=== PATIENT | female | born 1960 | race Hispanic/Latino ===

== ENCOUNTER 2016-10-25 08:51 | Emergency (ER) | payer OTHER ==
[~2016-10-25] VITALS: Ht 149.9 cm; Wt 56.2 kg
[~2016-10-25 08:51] MED LIST: ATORVASTATIN CA10 MG PO; FENOFIBRIC ACI135 MG PO; METFORMIN500 MG PO; XANAX0.5 MG PO
[2016-10-25 09:25] LABS: ABSOLUTE BASOPHIL COUNT 0 /CUMM (0.0-0.2); ABSOLUTE EOSINOPHIL COUNT 0.1 /CUMM (0.0-0.7); ABSOLUTE GRANULOCYTE CT 2.6 /CUMM (1.4-6.5); ABSOLUTE LYMPH COUNT 1.8 /CUMM (1.2-3.4); ABSOLUTE MONOCYTE COUNT 0.4 /CUMM (0.10-0.60); BASOPHIL % 0.4 % (0.0-2.0); EOSINOPHIL % 1.2 % (0-5); GRANULOCYTE % 52.7 % (42.2-75.2); HEMATOCRIT 39.3 % (37-47); MEAN CORPUSCULAR HGB 29.6 PG (27.0-31.0); MEAN CORPUSCULAR HGB CONC 33.6 G/DL (33.0-37.0); MEAN CORPUSCULAR VOLUME 88.1 FL (81.0-99.0); MEAN PLATELET VOLUME 7.9 FL (7.4-10.4); PLATELET COUNT 340 /CUMM (130-400); RBC DISTRIBUTION WIDTH 14.1 % (11.5-14.5); RED BLOOD CELL CT 4.47 /CUMM (4.20-5.40); WHITE BLOOD CELL COUNT 4.9 /CUMM (4.8-10.8)
--- NOTE | 2016-10-25 09:56 | ED GI/GU/ABDOMINAL COMPLAINT ---
History of Present Illness General Chief Complaint: Abdominal Pain/Flank Pain Stated Complaint: ABD PAIN AND NAUSEA Source: patient, family, old records Exam Limitations: no limitations Vital Signs & Intake/Output Vital Signs & Intake/Output Vital Signs Date Time Temp Pulse Resp B/P B/P Pulse O2 O2 Flow FiO2 Mean Ox Delivery Rate 10/25 1117 73 18 137/80 96 Room Air 10/25 0907 97.4 66 20 148/82 98 Room Air Allergies Coded Allergies: NO KNOWN ALLERGIES (08/24/13) Reconcile Medications Alprazolam (Xanax) 0.5 MG TABLET 1 TAB PO Q12 PRN ANXIETY Atorvastatin Calcium (Lipitor) 10 MG TABLET 1 TAB PO DAILY CHOLESTEROL ( Reported) FENOFIBRIC ACID (CHOLINE) (Fenofibric Acid) 135 MG CAPSULE.DR 1 TAB PO DAILY TRIGLYCERIDES (Reported) Hyoscyamine (Levsin) 0.125 MG TABLET 1 TAB PO Q4 PRN abdominal spasms METFORMIN HCL (Metformin) 500 MG TABLET 1 TAB PO BID DIABETES (Reported) Ondansetron (Zofran Odt) 4 MG TAB.RAPDIS 1 TAB SL TID PRN nausea Triage Note: PRESENTS TO ED FOR EVALUATION OF RUQ PAIN X 2 WEEKS WITH NAUSEA AND DIARRHEA, NO VOMITING. DENIED FEVER. Triage Nurses Notes Reviewed? yes ? n Is pt currently ? No Onset: Gradual Duration: waxing and waning (2 weeks) Timing: no prior history Quality/Severity: cramping Severity Numbers: 8 Location: right upper quadrant Radiation: no radiation Activities at Onset: none Prior Abdominal Problems: none Past Sexual History: Unobtainable at this time No Modifying Factors: none HPI: Patient is a 56-year-old female presenting to the emergency Department chief complaint of right upper quadrant abdominal pain since yesterday. Patient also reports that she has had loose stool 2 weeks. Denies any recent travel. No sick contacts. She does report that she was put on ciprofloxacin 500 mg twice a day 10 days. Called her primary care physician who advised her to come to the emergency department, she came yesterday but the wait was too long. Patient reports nausea but no vomiting. No fevers or chills. Denies taking anything to help her symptoms and she reports that the loose stool has been improving over the past day or 2, more semifirm stool this morning. No blood in the stool. (JOSHNIXON CAMP) Past History Travel History Traveled to [place] past 21 day No Medical History Any Pertinent Medical History? see below for history Cardiovascular: hypertension Psychiatric: anxiety Endocrine: diabetes Surgical History Surgical History: non-contributory Psychosocial History Who do you live with Spouse What is your primary language Macedonian Tobacco Use: Never used Family History Hx Contributory? No (NIXON YEUNG) Review of Systems Review of Systems Constitutional: Reports: no symptoms. Comments Review of systems: See HPI, All other systems negative. Constitutional, no chills fever or weight loss HEENT: No visual changes no sore throat no congestion Cardiovascular: No chest pain ,palpitation Skin, no jaundice no rashes Respiratory: No dyspnea cough sputum or hemoptysis GI: no vomiting : No dysuria No hematuria Muscle skeletal: no back pain, no neck pain, Neurologic: No numbness no confusion Psych: No stress anxiety or depression,. Heme/endocrine: No bruising no bleeding no polyuria or polydipsia Immunology: No splenectomy or history of AIDS (NIXON YEUNG) Physical Exam Physical Exam General Appearance: well developed/nourished, no apparent distress, alert, awake , comfortable Gastrointestinal: normal bowel sounds, soft, tenderness Comments: Well-developed well-nourished person in no acute distress HEENT: Pupils equally round and reactive to light and accommodation. Nose is atraumatic. External auditory canal and Tympanic membranes clear. Pharynx normal. No swelling or edema. Neck: normal inspection Back: Nontender, no CVA tenderness. Full range of motion Cardiovascular: Regular rate and rhythms no murmurs rubs or gallops, normal JVP Respiratory: Chest nontender. No respiratory distress.breath sounds clear to auscultation bilaterally Abdomen: Soft, tender to palpation in epigastric and ruq area. nondistended, no appreciable organomegaly. Normal bowel sounds. No ascites. negative psoas and opterator sign. Extremity: No edema Neuro: Alert oriented x3 Skin: No appreciable rash on exposed skin, skin is warm and dry. Psych: Mood and affect is normal, memory and judgment is normal. Core Measures ACS in differential dx? No Severe Sepsis Present: No Septic Shock Present: No (NIXON YEUNG) Progress Differential Diagnosis: appendicitis, biliary colic, diverticulitis, gastritis, hepatitis, pancreatitis, UTI/pyelo Plan of Care: Orders Procedure Date/time Status Add-on Test (ER Only) 10/25 929 Active URINALYSIS 10/25 929 Complete LIPASE 10/26 911 Complete AMYLASE 10/26 911 Complete COMPREHENSIVE METABOLIC PANEL 10/25 906 Complete CBC WITHOUT DIFFERENTIAL 10/25 906 Complete Laboratory Tests 10/25/16 1004: Urinalysis LIGHT H, Urine Color YEL, Urine Clarity CLEAR, Urine pH 6.0, Ur Specific [place] >= 1.030, Urine Protein NEG, Urine Ketones NEG, Urine Nitrite NEG, Urine Bilirubin NEG, Urine Urobilinogen 0.2, Ur Leukocyte Esterase NEG, Ur Microscopic SEDIMENT EXAMINED, Urine RBC 1-3, Urine WBC 1-3 H, Ur Epithelial Cells MOD H, Urine Bacteria FEW H, Granular Casts 1-3 H, Urine Hemoglobin SMALL H, Urine Glucose NEG 10/25/16911: Anion Gap 13, Estimated GFR > 60, BUN/Creatinine Ratio 24.3, Glucose 116 H, Calcium 10.3 H, Total Bilirubin 0.6, AST 34, ALT 47, Alkaline Phosphatase 51, Total Protein 7.3, Albumin 4.8, Globulin 2.5, Albumin/Globulin Ratio 1.9, Amylase 91, Lipase 165, CBC w Diff NO MAN DIFF REQ, RBC 4.47, MCV 88.1, MCH 29.6 , RDW 14.1, MPV 7.9, Gran % 52.7, Lymphocytes % 37.1, Monocytes % 8.6, Eosinophils % 1.2, Basophils % 0.4, Absolute Granulocytes 2.6, Absolute Lymphocytes 1.8, Absolute Monocytes 0.4, Absolute Eosinophils 0.1, Absolute Basophils 0, PUBS MCHC 33.6 Diagnostic Imaging: Viewed by Me: Ultrasound. Discussed w/RAD: Ultrasound. Radiology Impression: PATIENT: ALIDA ROBLES PRESENT AGE: 56 PATIENT ACCOUNT NO: [id number] : 58 LOCATION: [facility] ORDERING PHYSICIAN: NIXON CADET SERVICE DATE: 10/25/16-100 EXAM TYPE: US - US-LIMITED ABDOMEN EXAMINATION: US ABDOMEN LIMITED CLINICAL INFORMATION: Right upper quadrant. COMPARISON: None TECHNIQUE: Real-time imaging of the right upper quadrant abdominal viscera. FINDINGS: PANCREAS: The pancreas is normal in appearance. The tail is obscured by gas. LIVER: Normal. The liver is mildly echogenic consistent with hepatic steatosis. No focal liver lesion is identified. There is no intrahepatic biliary ductal dilatation. GALLBLADDER: Gallbladder is not identified. It may have been removed or is otherwise contracted.. COMMON BILE DUCT: Normal in caliber measuring 0.5 cm in diameter. RIGHT KIDNEY: No hydronephrosis. There is a small cyst at the lower pole of the right kidney measuring 1 cm in diameter. No other focal renal mass is defined. There is no stone.. The kidney measures 10.2 cm in maximum dimension. FREE FLUID : None. IMPRESSION: Hepatic steatosis. Gallbladder is not identified and may have been removed or is contracted. No biliary ductal dilatation. Incidental small cyst lower pole right kidney. DICTATED BY: CONNOR SANDERS MD DATE/TIME DICTATED:10/25/161102 INDUSTRIAL SECURITY ANALYST:SHAVON DATE/TIME TRANSCRIBED:1102 CONFIDENTIAL, DO NOT COPY WITHOUT APPROPRIATE AUTHORIZATION. < Electronically signed in Other Vendor System> SIGNED BY: CONNOR SANDERS MD 10/25/161108 Initial ED EKG: none Comments: etiology of diarrhea unknown. could be viral. Patient is afebrile, no elevation in white blood cell count. Ultrasound is essentially negative, no gallbladder identified and no dilation of common bile duct. There is some hepatic steatosis noted. No elevation in LFTs or bilirubin. Patient will be treated symptomatically with Levsin and Zofran. She was given outpatient prescription for stool culture and C. difficile culture. She'll follow up with GI if symptoms persist. Patient is nontoxic. No indication for CT scan at this time. She'll return for worsening symptoms. (NIXON YEUNG) Departure Departure Time of Disposition: 1109 Disposition: HOME OR SELF CARE Condition: Stable Clinical Impression Primary Impression: Abdominal pain Qualifiers: Abdominal location: right upper quadrant Qualified Code: R10.11 - Right upper quadrant pain Referrals: KRISTOPHER SORIANO,ESTER Spaulding (PCP/Family) LORRIE SALDANA MD Additional Instructions: Follow-up with gastroenterology if symptoms persist call to make an appointment. Increase fluids. Take Levsin as prescribed to help with abdominal discomfort. Take Zofran as prescribed for nausea. Return for worsening symptoms or concerns. PATIENT: ALIDA ROBLES PRESENT AGE: 56 PATIENT ACCOUNT NO: [id number] : 58 LOCATION: [facility] ORDERING PHYSICIAN: NIXON CADET SERVICE DATE: 10/25/16 EXAM TYPE: US - US-LIMITED ABDOMEN EXAMINATION: US ABDOMEN LIMITED CLINICAL INFORMATION: Right upper quadrant. COMPARISON: None TECHNIQUE: Real-time imaging of the right upper quadrant abdominal viscera. FINDINGS: PANCREAS: The pancreas is normal in appearance. The tail is obscured by gas. LIVER: Normal. The liver is mildly echogenic consistent with hepatic steatosis. No focal liver lesion is identified. There is no intrahepatic biliary ductal dilatation. GALLBLADDER: Gallbladder is not identified. It may have been removed or is otherwise contracted.. COMMON BILE DUCT: Normal in caliber measuring 0.5 cm in diameter. RIGHT KIDNEY: No hydronephrosis. There is a small cyst at the lower pole of the right kidney measuring 1 cm in diameter. No other focal renal mass is defined. There is no stone.. The kidney measures 10.2 cm in maximum dimension. FREE FLUID: None. IMPRESSION: Hepatic steatosis. Gallbladder is not identified and may have been removed or is contracted. No biliary ductal dilatation. Incidental small cyst lower pole right kidney. DICTATED BY: CONNOR SANDERS MD DATE/TIME DICTATED:10/25/161102 INDUSTRIAL SECURITY ANALYST:SHAVON DATE/TIME TRANSCRIBED:10/25/161102 CONFIDENTIAL, DO NOT COPY WITHOUT APPROPRIATE AUTHORIZATION. <Electronically signed in Other Vendor System> SIGNED BY: CONNOR SANDERS MD 10/25 Departure Forms: Customer Survey D/C INS-APPENDICITIS EXCLUSION General Discharge Information Prescriptions: Current Visit Scripts Hyoscyamine (Levsin) 1 TAB PO Q4 PRN abdominal spasms #40 TAB Ondansetron (Zofran Odt) 1 TAB SL TID PRN nausea #10 TAB (NIXON YEUNG) PA/BIKE MECHANIC Co-Sign Statement Statement: ED Attending supervision documentation- I saw and evaluated the patient. I have also reviewed all the pertinent lab results and diagnostic results. I agree with the findings and the plan of care as documented in the PA's/BIKE MECHANIC's documentation. x I have reviewed the ED Record and agree with the PA's/BIKE MECHANIC's documentation. [] Additions or exceptions (if any) to the PAs/BIKE MECHANIC's note and plan are summarized below: [] (RENETTA SORIANO,SIMA)
--- NOTE | 2016-10-25 11:09 | ULTRASOUND REPORT ---
EXAMINATION: US ABDOMEN LIMITED CLINICAL INFORMATION: Right upper quadrant. COMPARISON: None TECHNIQUE: Real-time imaging of the right upper quadrant abdominal viscera. FINDINGS: PANCREAS: The pancreas is normal in appearance. The tail is obscured by gas. LIVER: Normal. The liver is mildly echogenic consistent with hepatic steatosis. No focal liver lesion is identified. There is no intrahepatic biliary ductal dilatation. GALLBLADDER: Gallbladder is not identified. It may have been removed or is otherwise contracted.. COMMON BILE DUCT: Normal in caliber measuring 0.5 cm in diameter. RIGHT KIDNEY: No hydronephrosis. There is a small cyst at the lower pole of the right kidney measuring 1 cm in diameter. No other focal renal mass is defined. There is no stone.. The kidney measures 10.2 cm in maximum dimension. FREE FLUID: None. IMPRESSION: Hepatic steatosis. Gallbladder is not identified and may have been removed or is contracted. No biliary ductal dilatation. Incidental small cyst lower pole right kidney.
[2016-10-25 11:17] VITALS: BP 137/80
[2016-10-25] MEDS ORDERED: ZOFRAN ODT4 M1 SL (11:20)
[2016-10-25] MEDS ORDERED: LEVSIN0.125 M1 PO (11:20)
== END 2016-10-25 11:23 ==
LOC: ERH 08:51
PROVIDERS: Emergency Medicine
DX: R10.11 Right upper quadrant pain (principal)
CPT/HCPCS: 81001

== ENCOUNTER 2017-05-13 20:18 | Emergency (ER) | payer OTHER ==
[~2017-05-13 20:18] MED LIST changes: +LEVSIN0.125 M1 PO; +ZOFRAN ODT4 M1 SL
[2017-05-13 20:31] VITALS: BP 165/100
--- NOTE | 2017-05-13 21:01 | ED NECK/BACK PAIN COMPLAINT ---
History of Present Illness General Chief Complaint: Neck/Upper Back Pain/Injury Stated Complaint: NECK AND BACK PAIN Source: patient, family Exam Limitations: no limitations Vital Signs & Intake/Output Vital Signs & Intake/Output Vital Signs Date Time Temp Pulse Resp B/P B/P Pulse O2 O2 Flow FiO2 Mean Ox Delivery Rate 05/13 2030 69 22 165/100 99 Allergies Coded Allergies: prednisone (INTERFERES WITH BLOOD SUGAR 05/13/17) Reconcile Medications Alprazolam (Xanax) 0.5 MG TABLET 1 TAB PO Q12 PRN ANXIETY Atorvastatin Calcium (Lipitor) 10 MG TABLET 1 TAB PO DAILY CHOLESTEROL ( Reported) FENOFIBRIC ACID (CHOLINE) (Fenofibric Acid) 135 MG CAPSULE.DR 1 TAB PO DAILY TRIGLYCERIDES (Reported) Hyoscyamine (Levsin) 0.125 MG TABLET 1 TAB PO Q4 PRN abdominal spasms METFORMIN HCL (Metformin) 500 MG TABLET 1 TAB PO BID DIABETES (Reported) Ondansetron (Zofran Odt) 4 MG TAB.RAPDIS 1 TAB SL TID PRN nausea Oxycodone HCl/Acetaminophen (Percocet 5-325 MG Tablet) 5 MG-325 MG TABLET 1 TAB PO BID PRN pain Triage Note: PER PT WENT TO WALK IN D/T INCREASED PAIN TO "BULGING DISCS" [facility] 1 MONTH AGO GIVEN PAIN PATCHES BUT NOT WORKING PAIN TOO BAD X 1 MONTH NOW, PT WITHOUT NEURO DEFICITS AMBULATORY Triage Nurses Notes Reviewed? yes Onset: Gradual Duration: week(s): Timing: recent history Quality/Severity: severe Location: C-spine, lumbar spine Loss of Consciousness: no loss of consciousness HPI: 56-year-old female with history of cervical and lumbar disc herniations presents emergency room complaining of severe back pain and neck pain. Patient reports history of chronic pain for the past 25 years, she has been seeing orthopedic doctor. Patient recently had an MRI last month which showed disc herniations. Patient states that for the past month her pain has been worsening. Pain is not well controlled with lidocaine patch, Tylenol, ibuprofen. Patient states that pain in her neck radiates down both arms. Patient also has associated headache. The patient denies numbness, tingling, loss of bowel or bladder functioning, recent fall or trauma. (Camila CADET,Kadi Lauren) Past History Travel History Traveled to [place] past 21 day No Medical History Any Pertinent Medical History? see below for history Neurological: NONE EENT: NONE Cardiovascular: hypertension, CHOLESTEROL Respiratory: NONE Gastrointestinal: NONE Hepatic: NONE Renal: NONE Musculoskeletal: BULGING DISC Psychiatric: anxiety Endocrine: diabetes Surgical History Surgical History: non-contributory Psychosocial History Who do you live with Spouse What is your primary language Paraguayan Tobacco Use: Never used Family History Hx Contributory? No (Kadi Vazquez) Review of Systems Review of Systems Constitutional: Reports: no symptoms. Eyes: Reports: no symptoms. Ears, Nose, Throat, Mouth: Reports: no symptoms. Respiratory: Reports: no symptoms. Cardiovascular: Reports: no symptoms. Gastrointestinal/Abdominal: Reports: no symptoms. Musculoskeletal: Reports: see HPI. Skin: Reports: no symptoms. Neurological/Psychological: Reports: no symptoms. All Other Systems: Reviewed and Negative (Kadi Vazquez) Physical Exam Physical Exam General Appearance: well developed/nourished, no apparent distress, alert, awake Head: atraumatic, normal appearance Eyes: Bilateral: normal appearance. Ears, Nose, Throat, Mouth: hearing grossly normal Neck: normal inspection, supple, full range of motion, posterior and bilateral neck tenderness Respiratory: no respiratory distress Peripheral Pulses: 2+ radial (R), 2+ radial (L) Back: normal inspection, normal range of motion, thoracic and lumbar vertebral tenderness Extremities: normal range of motion Straight Leg Raising: Right: Negative. Left: Negative. Sensory: Medial Le: L4R, L4L. Top of Foot: 2: L5R, L5L. Sole of Foot: 2: SIR, TONY. Motor: Deficit L4 Right: No Deficit L4 Left: No Deficit L5 Right: No Deficit L5 Left: No Deficit S1 Right: No Deficit S1 Right: No Neurologic/Psych: no motor/sensory deficits, awake, alert, oriented x 3, strength 5/5 equal bilateral upper and lower extremities Skin: intact, normal color, warm/dry Core Measures CVA/TIA Diagnosis: No (Kadi Vazquez) Progress Differential Diagnosis: C spine injury, cauda equina syn, herniated disc, myofascial strain, pyelo/UTI Plan of Care: Patient's pain has been present for months to years, she had recent imaging done within the past month. Patient informed that MRI is most specific imaging for herniated disks and spinal nerve compression. Patient instructed to follow-up with orthopedic and possibly consult pain management. Has no saddle anesthesia, unilateral weakness, loss of bowel or bladder functioning, low suspicion for cauda equina syndrome at this time. Her pain is chronic. Patient describes short course of Percocet for breakthrough pain only and she will follow-up with specialist as discussed. Patient agrees with plan of care. (Kadi Vazquez) Departure Departure Disposition: HOME OR SELF CARE Condition: Stable Clinical Impression Primary Impression: Back pain Secondary Impressions: Neck pain Referrals: Mahnaz Felix MD (PCP/Family) Additional Instructions: Take Percocet as prescribed as needed for pain. Follow-up with orthopedic doctor. Return to the emergency Department with any worsening symptoms or concerns. Please note that there might be incidental findings in your evaluation that are unrelated to the current emergency department visit. Please notify your primary care doctor about this emergency department visit in order to obtain and review all of the testing performed so that these incidental findings can be monitored as needed. If you had an x-ray performed, please understand that some fractures may not be seen on the initial set of x-rays. If your symptoms persist you might need a repeat set of x-rays to check for such a fracture. If you had a laceration evaluated, please understand that foreign bodies such as glass or wood may not be visible to the naked eye or on plain x-rays. If the wound becomes red, swollen, increasingly more painful or if there is any drainage from the wound, please have it reevaluated by a physician for the possibility of a retained foreign body. If you're unable to follow up as outlined in the discharge instructions please return to the emergency department. Thank you for choosing the [facility] Emergency Department for your care. It was a pleasure to serve you today. Departure Forms: Customer Survey General Discharge Information Prescriptions: Current Visit Scripts Oxycodone HCl/Acetaminophen (Percocet 5-325 MG Tablet) 1 TAB PO BID PRN pain #10 TAB (Camila CADET,Kadi Lauren) PA/CERTIFIED PEDORTHOTIST Co-Sign Statement Statement: ED Attending supervision documentation- [] I saw and evaluated the patient. I have also reviewed all the pertinent lab results and diagnostic results. I agree with the findings and the plan of care as documented in the PA's/CERTIFIED PEDORTHOTIST's documentation. [X] I have reviewed the ED Record and agree with the PA's/CERTIFIED PEDORTHOTIST's documentation. [] Additions or exceptions (if any) to the PAs/CERTIFIED PEDORTHOTIST's note and plan are summarized below: [] (Odin SORIANO,Aurelia)
[2017-05-13] MEDS ORDERED: PERCOCET 5-3251 EACH PO (21:42)
== END 2017-05-13 21:48 ==
LOC: ERH 20:18
DX: M54.6 Pain in thoracic spine (principal); M54.5 Low back pain; M54.2 Cervicalgia
CPT/HCPCS: 96372; J1885

== ENCOUNTER 2017-06-30 22:57 | Emergency (ER) | payer OTHER ==
[~2017-06-30] VITALS: Ht 152.4 cm; Wt 56.7 kg
[~2017-06-30 22:57] MED LIST changes: +PERCOCET 5-3251 EACH PO
[2017-06-30 23:14] VITALS: BP 128/83
== END 2017-07-01 00:27 | disposition admitted as inpatient to this hospital (09) ==
LOC: ERH 22:57
DX: R51 Headache (principal)

== ENCOUNTER 2017-07-03 17:19 | Emergency (ER) | payer OTHER ==
[~2017-07-03] VITALS: Ht 149.9 cm; Wt 56.7 kg
[2017-07-03 17:47] VITALS: BP 142/86
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
[2017-07-03] MEDS ORDERED: CYCLOBENZAPRINE5 M2 PO (18:54)
== END 2017-07-03 19:01 ==
LOC: ERH 17:19
DX: S09.90XA Unspecified injury of head, initial encounter (principal); S80.812A Abrasion, left lower leg, initial encounter; M79.662 Pain in left lower leg; V49.40XA Driver injured in collision with unspecified motor vehicles in traffic accident, initial encounter; Y92.410 Unspecified street and highway as the place of occurrence of the external cause
CPT/HCPCS: 73590-LT; 73590-RT

== ENCOUNTER 2017-07-08 14:15 | Emergency (ER) | payer OTHER ==
[~2017-07-08] VITALS: Ht 149.9 cm; Wt 56.7 kg
[~2017-07-08 14:15] MED LIST changes: +CYCLOBENZAPRINE5 M2 PO
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
[2017-07-08 16:12] LABS: ABSOLUTE BASOPHIL COUNT 0 /CUMM (0.0-0.2); ABSOLUTE EOSINOPHIL COUNT 0.1 /CUMM (0.0-0.7); ABSOLUTE GRANULOCYTE CT 2.9 /CUMM (1.4-6.5); ABSOLUTE LYMPH COUNT 2.7 /CUMM (1.2-3.4); ABSOLUTE MONOCYTE COUNT 0.6 /CUMM (0.10-0.60); BASOPHIL % 0.4 % (0.0-2.0); EOSINOPHIL % 1.1 % (0-5); GRANULOCYTE % 46.2 % (42.2-75.2); HEMATOCRIT 36.3 % (37-47); MEAN CORPUSCULAR HGB 29.8 PG (27.0-31.0); MEAN CORPUSCULAR HGB CONC 33.3 G/DL (33.0-37.0); MEAN CORPUSCULAR VOLUME 89.7 FL (81.0-99.0); MEAN PLATELET VOLUME 7.6 FL (7.4-10.4); PLATELET COUNT 348 /CUMM (130-400); RBC DISTRIBUTION WIDTH 14.4 % (11.5-14.5); RED BLOOD CELL CT 4.05 /CUMM (4.20-5.40); WHITE BLOOD CELL COUNT 6.3 /CUMM (4.8-10.8)
[2017-07-08 17:13] VITALS: BP 126/86
[2017-07-08] MEDS ORDERED: ZOFRAN ODT4 M1 SL (17:15)
[2017-07-08] MEDS ORDERED: MECLIZINE HCL25 MG PO (17:15)
[2017-07-08] MEDS ORDERED: IBUPROFEN800 M1 PO (17:15)
== END 2017-07-08 17:21 ==
LOC: ERH 14:15
PROVIDERS: Physician Assistant Medical
DX: R42 Dizziness and giddiness (principal)
CPT/HCPCS: 93005; 93010; J3101